=== PATIENT | female | born 1960 | race African-American/Black ===

== ENCOUNTER 2021-04-01 18:22 | Emergency (ER) | payer OTHER ==
[~2021-04-01] VITALS: Ht 167.6 cm; Wt 71.0 kg
[2021-04-01 18:23] VITALS: BP 150/100
[2021-04-01] MEDS ORDERED: IBUP-2029 MT (22:07)
== END 2021-04-01 23:04 | disposition home or self-care (01) ==
LOC: ER 18:22
DX: S16.1XXA Strain of muscle, fascia and tendon at neck level, initial encounter (principal); M79.602 Pain in left arm; Z79.899 Other long term (current) drug therapy; Z85.3 Personal history of malignant neoplasm of breast; Z98.890 Other specified postprocedural states; V49.88XA Car occupant (driver) (passenger) injured in other specified transport accidents, initial encounter; Y93.89 Activity, other specified; Y92.89 Other specified places as the place of occurrence of the external cause; Y99.8 Other external cause status
CPT/HCPCS: 72040; 99283